=== PATIENT | male | born 1975 | race Caucasian/White ===

== ENCOUNTER 2018-04-25 19:23 | Emergency (ER) | payer OTHER, SELFPAY ==
[2018-04-25 19:27] VITALS: BP 155/102; PULSE 70; RESP 16; TEMP 36.4; O2SAT 96; BMI 33.0
--- NOTE | 2018-04-25 20:01 | ED.ABDPAIN ---
HPI - Abdominal Pain General Chief Complaint: Abdominal Pain Stated Complaint: PAIN LOWER LEFT SIDE FEVER Time Seen by Provider: 04/25/18 20:01 Source: patient Mode of arrival: ambulatory Limitations: no limitations History of Present Illness HPI narrative: 42-year-old male, otherwise healthy, denies smoking presents with few hours of generalized abdominal pain and subjective fever. He has had nausea but no vomiting. He denies any provocation, palliation or radiation of his symptoms nor does he have history of the same. He denies recent travel, exposure to bad food, ill per symptoms or recent use of antibiotics. MD complaint: abdominal pain Onset (ago): hour(s) Pain Consistency: constant Location: diffuse Severity: moderate Severity scale (1-10): 4 Quality: cramping and aching Radiation: none Migration to: no migration Relieving factors: nothing Exacerbating factors: nothing Associated symptoms: nausea Related Data Home Medications Medication Instructions Recorded Confirmed No Known Home Medications 04/25/18 04/25/18 Allergies Allergy/AdvReac Type Severity Reaction Status Date / Time No Known Drug Allergies Allergy Verified 04/25/18 19:32 Review of Systems Review of Systems All systems reviewed & are unremarkable except as noted in HPI and below Constitutional Denies chills, Denies fever(s), Denies lethargy and Denies weakness Eyes Denies change in vision, Denies eye discharge, Denies irritation and Denies loss of vision ENT Ears, Nose, Mouth, and Throat: Denies change in voice, Denies neck pain and Denies sore throat Cardiovascular Denies chest pain, Denies irregular heart rhythm, Denies lightheadedness, Denies palpitations, Denies dyspnea, Denies dyspnea on exertion and Denies orthopnea Respiratory Denies cough, Denies dyspnea, Denies dyspnea on exertion and Denies wheezing Gastrointestinal Gastrointestinal: Reports abdominal pain, Denies change in bowel habits, Denies diarrhea, Reports nausea and Denies vomiting Genitourinary Denies hematuria, Denies flank pain, Denies urinary incontinence and Denies urinary urgency Musculoskeletal Denies neck pain Integumentary/Breasts Denies pruritus, Denies erythema, Denies rash and Denies wounds Neurologic Denies confusion, Denies loss of vision and Denies weakness Psychiatric Denies anxiety, Denies confusion, Denies depression, Denies homicidal ideation and Denies suicidal ideation Endocrine Denies palpitations Hematologic/Lymphatic Denies easy bruising Allergic/Immunologic Denies wheezing [facility] Medical History Patient denies medical problems (Acute) Social History Smoking Status: Former smoker Exam Narrative Exam Narrative: GENERAL: Pleasant 42-year-old male in mild distress, of the CT does not feel well but not in significant pain HEAD: Atraumatic. Normocephalic. No temporal or scalp tenderness. EYES: Pupils equal round and reactive. Extraocular motions intact. No scleral icterus. No injection or drainage. ENT: Nose without bleeding, purulent drainage or septal hematoma. Throat without erythema, tonsillar hypertrophy or exudate. Uvula midline. Airway patent. NECK: Trachea midline. No JVD or lymphadenopathy. Supple, nontender, no meningeal signs. CARDIOVASCULAR: Regular rate and rhythm without murmurs, gallops, or rubs. RESPIRATORY: Clear to auscultation. Breath sounds equal bilaterally. No wheezes, rales, or rhonchi. GASTROINTESTINAL: Abdomen soft, mild generalized tenderness, nondistended. No hepato-splenomegaly, or palpable masses. No guarding. EXTREMITIES: No clubbing, cyanosis, or edema. No joint tenderness, effusion, or edema noted. BACK: Nontender without deformity or crepitance. No flank tenderness. NEURO: AOx3. SKIN: No rash or erythema. Initial Vital Signs Initial Vital Signs: Vital Signs Temperature 97.5 F L 04/25/18 19:27 Pulse Rate 70 04/25/18 19:27 Respiratory Rate 16 04/25/18 19:27 Blood Pressure 155/102 H 04/25/18 19:27 Pulse Oximetry 96 04/25/18 19:27 Course Orders Ordered: ED Orders 04/25/18 20:21 XR acute abdomen series Stat 04/25/18 20:50 Complete Blood Count AUTO DIFF Stat Comprehensive Metabolic Panel Stat Lipase Stat Discontinued Medications Sodium Chloride (Normal Saline 0.9%) 1,000 mls @ 1,000 mls/hr IV BOLUS ONE Stop: 04/25/18 21:20 Last Infusion: 04/25/18 22:50 Dose: 0 mls/hr Admin: 04/25/18 21:15 Dose: 1,000 mls/hr Ondansetron HCl (Zofran) 4 mg IV Q4HR PRN PRN Reason: Nausea And Vomiting Last Admin: 04/25/18 21:20 Dose: 4 mg Ondansetron HCl (Zofran Odt Prepack) 1 bottle MISC SEEINSTR ONE Stop: 04/25/18 22:23 Last Admin: 04/25/18 22:43 Dose: 1 bottle Pantoprazole Sodium (Protonix) 40 mg IV NOW ONE Stop: 04/25/18 20:22 Last Admin: 04/25/18 21:15 Dose: 40 mg Vital Signs - 8 hr 04/25/18 19:27 04/25/18 21:09 04/25/18 22:26 Temperature 97.5 F L 97.9 F 97.4 F L Pulse Rate 70 79 64 Respiratory Rate 16 16 16 Blood Pressure 155/102 H Blood Pressure [Right Arm] 139/79 H 147/90 H Pulse Oximetry 96 99 98 04/25/18 22:38 Temperature 97.4 F L Pulse Rate 64 Respiratory Rate 16 Blood Pressure 147/90 H Blood Pressure [Right Arm] Pulse Oximetry 98 MDM - Abdominal Pain Lab Data Result diagrams: 04/25/18 20:50 04/25/18 20:50 Lab Results 04/25/18 04/25/18 Range/Units 20:50 20:50 WBC 6.5 (4.5-11.0) X10^3/uL RBC 5.59 (4.5-5.9) X10^6/uL Hgb 16.6 (13.5-17.5) g/dL Hct 47.4 (41-53) % MCV 84.9 (80-100) fL MCH 29.7 (26-34) PG MCHC 35.0 (30-36) % RDW 13.2 (11.6-14.8) % Plt Count 214 (150-400) X10^3/uL Neut % (Auto) 54.6 (50-75) % Lymph % (Auto) 33.7 (25-40) % [place] % (Auto) 8.8 (3-14) % Eos % (Auto) 2.2 (2-4) % Baso % (Auto) 0.7 (0-2) % Neut # (Auto) 3600 (0894-8744) /uL Sodium 142 (137-145) mmol/L Potassium 3.7 (3.4-5.1) mmol/L Chloride 104 (98-107) mmol/L Carbon Dioxide 28 (22-32) mmol/L BUN 14 (9-20) mg/dL Creatinine 1.00 (0.66-1.25) mg/dL Estimated GFR > 60.0 (>60) mL/min BUN/Creatinine Ratio 14.0 (6-22) Glucose 127 H (70-100) mg/dL Calcium 9.2 (8.4-10.2) mg/dL Total Bilirubin 0.7 (0.2-1.3) mg/dL AST 38 (17-59) IU/L ALT 67 (21-72) IU/L Alkaline Phosphatase 54 (38-126) U/L Total Protein 7.4 (6.3-8.2) g/dL Albumin 4.3 (3.5-5.0) g/dL Globulin 3.1 (1.7-4.1) g/dL Albumin/Globulin Ratio 1.4 (1.0-2.8) Lipase 63 (23-300) U/L Point of care testing: Urine Dip Bedside Urine Glucose Negative Bedside Urine Bilirubin - Negative Bedside Urine Ketone +/- 5 Urine Specific [place] 1.025 Bedside Urine Occult Blood - Negative Bedside Urine pH 6.0 Bedside Urine Protein +/- 15 Bedside Urine Urobilinogen +/- 1mg Bedside Urine Nitrite - Negative Bedside Urine Leukocytes - Negative Esterase Imaging Data Abdominal x-ray: Radiologist's impression: PROCEDURE: XR ACUTE ABDOMEN SERIES INDICATIONS: Abdominal pain TECHNIQUE: One view chest and two views of the abdomen were acquired. COMPARISON: [facility], CT, KIDNEY/ URETER/BLADDER, 11/22/2016, 8:12. FINDINGS: Surgical changes and devices: None. Chest: Lungs are clear. Heart size is normal. No pleural effusions. No pneumoperitoneum. Abdomen: Bowel gas pattern is normal. No suspicious calcifications. Visualized solid organ contours appear normal. Clustered phleboliths are seen along the pelvic sidewall on the left, previously present on CT scanning. Bones: No suspicious bony lesions. IMPRESSION: Abdominal pain is not seen. Note is made of clustered phleboliths on the left that were also present in that configuration during prior CT scanning in October of last year. Depending on the clinical status followup by CT scanning may become necessary, however. Dictated by: Erick Holder M.D. on 04/25/2018 at 20:36 Approved by: Erick Holder M.D. on 04/25/2018 at 20:38 Discharge Plan Departure Patient Disposition: Home Clinical Impression: Abdominal pain Discharge Date/Time: 04/25/18 22:40 Interventions: ED Discharge Assessment Last Done: 04/25/18 22:38 Instructions: DI for Abdominal Pain-Adult Activity Restrictions/Additional Instructions: 1. Drink plenty of fluids with frequent small sips. 2. For the next 24 hours a clear liquid diet is advised. After that please employ a brat diet which would include bananas, rice, apples, toast. 3. Please take medications as directed. 4. Please follow-up with your doctor in the next 1-2 days. Call the office for an appointment. 5. Please return to the emergency Department for any worsening or persistent symptoms, such as increasing pain or fever. Prescriptions: No Action No Known Home Medications RF: 0
--- NOTE | 2018-04-25 20:21 | DI.RAD.S_ITS ---
PROCEDURE: XR ACUTE ABDOMEN SERIES INDICATIONS: Abdominal pain TECHNIQUE: One view chest and two views of the abdomen were acquired. COMPARISON: [facility], CT, KIDNEY/ URETER/BLADDER, 11/22/2016, 8:12. FINDINGS: Surgical changes and devices: None. Chest: Lungs are clear. Heart size is normal. No pleural effusions. No pneumoperitoneum. Abdomen: Bowel gas pattern is normal. No suspicious calcifications. Visualized solid organ contours appear normal. Clustered phleboliths are seen along the pelvic sidewall on the left, previously present on CT scanning. Bones: No suspicious bony lesions. IMPRESSION: Abdominal pain is not seen. Note is made of clustered phleboliths on the left that were also present in that configuration during prior CT scanning in October of last year. Depending on the clinical status followup by CT scanning may become necessary, however. Dictated by: Erick Holder M.D. on 04/25/2018 at 20:36 Approved by: Erick Holder M.D. on 04/25/2018 at 20:38
[2018-04-25 21:08] LABS: Add Manual Diff / Slide Review NO; Basophils Percent Auto 0.7 % (0-2); Eosinophils Percent Auto 2.2 % (2-4); Hematocrit 47.4 % (41-53); Hemoglobin 16.6 g/dL (13.5-17.5); Lymphocytes Percent Auto 33.7 % (25-40); Mean Corpuscular Hemoglobin 29.7 PG (26-34); Mean Corpuscular Volume 84.9 fL (80-100); Monocytes Percent Auto 8.8 % (3-14); Neutrophils Absolute Auto 3600 /uL (3000-5900); Neutrophils Percent Auto 54.6 % (50-75); Platelet Count 214 X10^3/uL (150-400); Red Blood Cell Count 5.59 X10^6/uL (4.5-5.9); Red Cell Distribution Width 13.2 % (11.6-14.8); White Blood Cell Count 6.5 X10^3/uL (4.5-11.0)
[2018-04-25 21:09] VITALS: BP 139/79; PULSE 79; RESP 16; TEMP 36.6; O2SAT 99
[2018-04-25 21:11] LABS: Alanine Aminotransferase 67 IU/L (21-72); Albumin 4.3 g/dL (3.5-5.0); Albumin Globulin Ratio 1.4 (1.0-2.8); Alkaline Phosphatase 54 U/L (38-126); Aspartate Aminotransferase 38 IU/L (17-59); Bilirubin Total 0.7 mg/dL (0.2-1.3); Blood Urea Nitrogen 14 mg/dL (9-20); Calcium 9.2 mg/dL (8.4-10.2); Carbon Dioxide 28 mmol/L (22-32); Chloride 104 mmol/L (98-107); Estimated Glomerular Filt Rate > 60.0 mL/min (>60); Globulin 3.1 g/dL (1.7-4.1); Glucose 127 mg/dL (70-100); HEMOLYSIS 40 (0-50); Lipase 63 U/L (23-300); Potassium 3.7 mmol/L (3.4-5.1); Sodium 142 mmol/L (137-145); Total Protein 7.4 g/dL (6.3-8.2)
[2018-04-25] MEDS: SODIUM CHLORIDE 0.9% 1,000 ML 1000 ML IV (21:15)
[2018-04-25] MEDS: PANTOPRAZOLE 40 MG VIAL IV (21:15)
[2018-04-25] MEDS: ONDANSETRON 4 MG/2 ML INJ IV (21:20)
[2018-04-25 22:26] VITALS: BP 147/90; PULSE 64; RESP 16; TEMP 36.3; O2SAT 98
[2018-04-25 22:38] VITALS: BP 147/90; PULSE 64; RESP 16; TEMP 36.3; O2SAT 98
[2018-04-25] MEDS: ONDANSETRON 4 MG ODT PREPACK 1 BOTTLE MISC (22:43)
== END 2018-04-25 22:40 | disposition home or self-care (01) ==
PROVIDERS: Emergency Provider Emergency Medicine; Family Provider Family Medicine; PCP Family Medicine
DX: R10.9 Unspecified abdominal pain (principal)
CPT/HCPCS: 74022; 80053; 81003; 83690; 85025; 96361; 96374; 96375; 99283; 99284; C9113; J2405